=== PATIENT | female | born 1980 | race Caucasian/White ===

== ENCOUNTER 2023-08-01 17:22 | Emergency (ER) | payer MEDICAID, OTHER ==
[~2023-08-01] VITALS: Ht 154.9 cm; Wt 83.9 kg
[2023-08-01 17:36] VITALS: O2SAT 100
[2023-08-01] MEDS: KETOROLAC 30MG/ML VIAL IM ONE (19:45)
[2023-08-01 20:04] LABS: BASOPHILS % 0.3 % (0.0-2.0); EOSINOPHILS % 1.7 % (0.0-5.0); HEMATOCRIT. 35.2 % (36.0-48.0); HEMOGLOBIN. 12.1 g/dL (12.0-16.0); LYMPHOCYTES % 19.6 % (20.0-50.0); MEAN CORPUSCULAR HEMOGLOBIN 31.3 pg (28.0-32.0); MEAN CORPUSCULAR HGB CONC 34.3 g/dL (31.0-37.0); MEAN CORPUSCULAR VOLUME 91.2 fL (81.0-99.0); MEAN PLATELET VOLUME 8.7 fl (7.4-10.4); MONOCYTES % 9.5 % (2.0-8.0); NEUTROPHILS % 68.9 % (40.0-76.0); PLATELET 238 x1000/uL (130-400); RED BLOOD CELL COUNT 3.86 mill/uL (4.2-5.4); RED CELL DISTRIBUTION WIDTH 14.2 % (11.6-14.6); WHITE BLOOD COUNT 8.8 x1000/uL (4.5-11.0)
[2023-08-01 20:08] LABS: CHLORIDE 104 mEq/L (98-107); POTASSIUM 4.1 mEq/L (3.5-5.1); SODIUM 139 mEq/L (136-145)
[2023-08-01 20:09] LABS: CARBON DIOXIDE 30 mEq/L (21-32)
[2023-08-01 20:10] LABS: CALCIUM 8.5 mg/dL (8.7-10.4)
[2023-08-01 20:14] LABS: CREATININE 0.6 mg/dL (0.6-1.0); GLUCOSE 95 mg/dL (70-105); UREA NITROGEN BLOOD 6 mg/dL (9-23)
[2023-08-01 20:16] LABS: ALANINE AMINOTRANSFERASE 12 IU/L (10-49); ALBUMIN 4.3 g/dL (3.2-4.8); ASPARTATE AMINOTRANSFERASE 16 IU/L (<34); BILIRUBIN TOTAL 0.3 mg/dL (0.1-1.0)
[2023-08-01 20:17] LABS: PROTEIN TOTAL 7.5 g/dL (6.0-8.3)
[2023-08-01 20:29] LABS: HCG SCREEN NEGATIVE
[2023-08-01 20:33] VITALS: BP 129/77; PULSE 80; RESP 18; TEMP 98
[2023-08-01] MEDS ORDERED: CLIN-194 MT (21:02)
[2023-08-01] MEDS ORDERED: IBUP-2030 MT (21:02)
== END 2023-08-01 20:48 | disposition home or self-care (01) ==
LOC: ER 17:22
DX: L02.412 Cutaneous abscess of left axilla (principal); R50.9 Fever, unspecified
CPT/HCPCS: 80053; 84703; 85025; 36415; 96372; 99283; J1885; Z7610 ×2